=== PATIENT | female | born 1995 | race Two or more races ===

== ENCOUNTER 2017-07-30 16:41 | Emergency (ER) | payer OTHER ==
--- NOTE | 2017-07-30 17:44 | ER Document Report ---
ED Medical Screen (RME) - General Chief Complaint: Vaginal Bleeding Stated Complaint: FEVER, VAGINAL BLEEDING Time Seen by Provider: 07/30/17 17:42 Mode of Arrival: Ambulatory Information source: Patient TRAVEL OUTSIDE OF THE [place] IN LAST 30 DAYS: No - HPI Patient complains to provider of: vaginal bleeding Onset: Other - pt with heavier than normal period and lasting for longer period of time. Also , c/o anorexia - Related Data Allergies/Adverse Reactions: No Known Allergies Allergy (Verified 07/30/17 16:42) Physical Exam - Vital signs Vitals: Temp Pulse Resp BP Pulse Ox 99.3 F 87 16 125/82 100 07/30/17 16:59 07/30/17 16:59 07/30/17 16:59 07/30/17 16:59 07/30/17 16:59 Course - Vital Signs Vital signs: Temp Pulse Resp BP Pulse Ox 99.3 F 87 16 125/82 100 07/30/17 16:59 07/30/17 16:59 07/30/17 16:59 07/30/17 16:59 07/30/17 16:59
[2017-07-30 18:17] LABS: ABSOLUTE EOSINOPHILS # (AUTO) 0.1 10^3/uL (0.0-0.6); ABSOLUTE LYMPHOCYTES (AUTO) 2.5 10^3/uL (0.5-4.7); ABSOLUTE MONOCYTES (AUTO) 0.6 10^3/uL (0.1-1.4); ABSOLUTE NEUT (AUTO) 9.1 10^3/uL (1.7-8.2); BASOPHILS % (AUTO) 0.2 % (0-2); EOSINOPHILS % (AUTO) 0.9 % (0-6); HEMATOCRIT 42.7 % (36.0-47.0); HEMOGLOBIN 14.1 g/dL (12.0-15.5); LYMPHOCYTES % (AUTO) 20.3 % (13-45); MEAN CORPUSCULAR HEMOGLOBIN 28.6 pg (27.0-33.4); MEAN CORPUSCULAR HGB CONC 33.1 g/dL (32.0-36.0); MEAN CORPUSCULAR VOLUME 87 fl (80-97); MONOCYTES % (AUTO) 4.7 % (3-13); PLATELET COUNT 295 10^3/uL (150-450); RED BLOOD COUNT 4.93 10^6/uL (3.72-5.28); RED CELL DISTRIBUTION WIDTH 13.9 % (11.5-14.0); SEGMENTED NEUTROPHILS % (AUTO) 73.9 % (42-78); TOTAL CELLS COUNTED % (AUTO) 100 %; WHITE BLOOD COUNT 12.2 10^3/uL (4.0-10.5)
[2017-07-30 18:35] LABS: APPEARANCE,URINE CLEAR; BILIRUBIN,URINE NEGATIVE (NEGATIVE); COLOR,URINE YELLOW; GLUCOSE, URINE NEGATIVE (NEGATIVE); KETONES,URINE NEGATIVE (NEGATIVE); LEUKOCYTE ESTERASE,URINE TRACE (NEGATIVE); NITRITE,URINE NEGATIVE (NEGATIVE); PROTEIN,URINE NEGATIVE (NEGATIVE); URINE SPECIFIC GRAVITY 1.013; UROBILINOGEN,URINE NEGATIVE mg/dL (<2.0)
[2017-07-30 18:38] LABS: ALANINE AMINOTRANSFERASE 59 U/L (9-52); ALBUMIN 4.9 g/dL (3.5-5.0); ALKALINE PHOSPHATASE 66 U/L (38-126); ANION GAP 13 (5-19); ASPARTATE AMINO TRANSFERASE 47 U/L (14-36); BILIRUBIN,DIRECT 0.4 mg/dL (0.0-0.4); BILIRUBIN,TOTAL 0.5 mg/dL (0.2-1.3); BLOOD UREA NITROGEN 13 mg/dL (7-20); CALCIUM 9.7 mg/dL (8.4-10.2); CARBON DIOXIDE 26 mmol/L (22-30); CHLORIDE 101 mmol/L (98-107); GLUCOSE 88 mg/dL (75-110); POTASSIUM 3.8 mmol/L (3.6-5.0); SODIUM 139.9 mmol/L (137-145); TOTAL PROTEIN 8.4 g/dL (6.3-8.2)
--- NOTE | 2017-07-30 19:00 | ER Document Report ---
HPI - HPI Patient complains to provider of: late menses, tired, some nausea Onset: Other - this month Quality of pain: Achy - generalized Pain Level: 2 Context: 21 yo female c/o late meses, lasting longer than normal, fatique, some nausea. Wants to know what is going on. No recent illness. No chest or abd. pain. No dysuria. No rash. No travel outside [place]. Associated Symptoms: None Exacerbated by: Denies Relieved by: Denies Similar symptoms previously: No Recently seen / treated by doctor: No - ROS ROS below otherwise negative: Yes Systems Reviewed and Negative: Yes All other systems reviewed and negative - DERM Skin Color: Normal, Aten Past Medical History - General Information source: Patient - Social History Smoking Status: Current Every Day Smoker Chew tobacco use (# tins/day): No Frequency of alcohol use: None Drug Abuse: None Lives with: Friend Family History: Reviewed & Not Pertinent Patient has suicidal ideation: No Patient has homicidal ideation: No - Medical History Medical History: Negative Renal/ Medical History: Denies: Hx Peritoneal Dialysis Surgical Hx: Negative Vertical Provider Document - CONSTITUTIONAL Agree With Documented VS: Yes Exam Limitations: No Limitations General Appearance: No Apparent Distress - INFECTION CONTROL TRAVEL OUTSIDE OF THE [place] IN LAST 30 DAYS: No - HEENT HEENT: Normal ENT Exam - NECK Neck: Supple - RESPIRATORY Respiratory: Breath Sounds Normal, No Respiratory Distress O2 Sat by Pulse Oximetry: 100 - CARDIOVASCULAR Cardiovascular: Regular Rate, Regular Rhythm - GI/ABDOMEN Gastrointestinal: Abdomen Soft, Abdomen Non-Tender, No Organomegaly, Normal Bowel Sounds - MUSCULOSKELETAL/EXTREMETIES Musculoskeletal/Extremeties: MAEW - NEURO Level of Consciousness: Awake, Alert - DERM Integumentary: Warm, Dry, No Rash Course - Re-evaluation Re-evalutation: 07/30/17 18:54 Minimally elevated AST and ALT. Negative test. Negative urinalysis. White count 12.7 without a shift. Hemoglobin 14.1 - Vital Signs Vital signs: Temp Pulse Resp BP Pulse Ox 99.3 F 87 16 125/82 100 07/30/17 16:59 07/30/17 16:59 07/30/17 16:59 07/30/17 16:59 07/30/17 16:59 - Laboratory Result Diagrams: 07/30/17 18:00 07/30/17 18:00 Laboratory results interpreted by me: 07/30/17 07/30/17 07/30/17 18:00 18:00 18:00 WBC 12.2 H Absolute Neutrophils 9.1 H AST 47 H ALT 59 H Total Protein 8.4 H Ur Leukocyte Esterase TRACE H Discharge - Discharge Clinical Impression: Liver enzyme elevation, Vaginal bleeding Fatigue Qualifiers: Fatigue type: unspecified Qualified Code(s): R53.83 - Other fatigue Condition: Good Disposition: HOME, SELF-CARE Instructions: Family Physicians / Practices, Liver Function Abnormality ([facility]), Vaginal Bleeding ([facility]) Additional Instructions: Recheck liver enzymes in 2 weeks List of family practice doctors given to you Return to the emergency room if symptoms worsen copy of labs given to you Forms: Return to Work
[2017-07-30 19:17] VITALS: BP 129/90
== END 2017-07-30 19:17 | disposition home or self-care (01) ==
LOC: ER 16:41
DX: R74.8 Abnormal levels of other serum enzymes (principal); N93.9 Abnormal uterine and vaginal bleeding, unspecified; R53.83 Other fatigue; R11.0 Nausea; F17.200 Nicotine dependence, unspecified, uncomplicated
CPT/HCPCS: 36415; 80053; 81001; 81025; 85025; 99284

== ENCOUNTER 2017-08-23 12:58 | Observation (INO) | payer OTHER ==
[~2017-08-23 12:58] MED LIST: DEXAMETHASONE SOD PHOSPHATE INJ 4 MG/1 ML VIAL ONE; GLYCOPYRROLATE INJ 0.4 MG/2 ML VIAL ONE; KETOROLAC TROMETHAMINE 60 MG/2 ML SDV ONE; LIDOCAINE 2% INJ-PF (20 MG/ML) 2 ML AMPUL ONE; METOCLOPRAMIDE HCL INJ/PF 10 MG/2 ML SDV ONE; ONDANSETRON HCL INJ/PF 4 MG/2 ML SDV ONE
--- NOTE | 2017-08-23 14:03 | ER Document Report ---
ED Medical Screen (RME) - General Chief Complaint: Breast Lump Stated Complaint: ABSCESS Time Seen by Provider: 08/23/17 13:52 Notes: Patient presented on July 302017 with malaise and vaginal bleeding. At that time she had a white blood cell count of 12,000 and some minimally elevated liver function tests. She was diagnosed with nonspecific hepatitis. She was instructed to follow-up with her primary care physician. She states that she called multiple physicians but she was unable to get an appointment with anyone. She states over the last several days she has developed a tender enlarging left breast mass. Therefore she can the emergency department today for evaluation. TRAVEL OUTSIDE OF THE [place] IN LAST 30 DAYS: No - Related Data Allergies/Adverse Reactions: No Known Allergies Allergy (Verified 08/23/17 13:01) Past Medical History - Social History Chew tobacco use (# tins/day): No Frequency of alcohol use: None Drug Abuse: None Renal/ Medical History: Denies: Hx Peritoneal Dialysis Physical Exam - Vital signs Vitals: Temp Pulse Resp BP Pulse Ox 98.9 F 69 16 123/65 99 08/23/17 13:15 08/23/17 13:15 08/23/17 13:15 08/23/17 13:15 08/23/17 13:15 Course - Vital Signs Vital signs: Temp Pulse Resp BP Pulse Ox 98.9 F 69 16 123/65 99 08/23/17 13:15 08/23/17 13:15 08/23/17 13:15 08/23/17 13:15 08/23/17 13:15
[2017-08-23 14:49] LABS: ABSOLUTE BASOPHILS # (AUTO) 0.1 10^3/uL (0.0-0.2); ABSOLUTE EOSINOPHILS # (AUTO) 0.1 10^3/uL (0.0-0.6); ABSOLUTE LYMPHOCYTES (AUTO) 2.1 10^3/uL (0.5-4.7); ABSOLUTE MONOCYTES (AUTO) 0.6 10^3/uL (0.1-1.4); ABSOLUTE NEUT (AUTO) 10.2 10^3/uL (1.7-8.2); BASOPHILS % (AUTO) 0.4 % (0-2); EOSINOPHILS % (AUTO) 0.8 % (0-6); HEMATOCRIT 44.6 % (36.0-47.0); HEMOGLOBIN 14.8 g/dL (12.0-15.5); LYMPHOCYTES % (AUTO) 16.1 % (13-45); MEAN CORPUSCULAR HEMOGLOBIN 28.4 pg (27.0-33.4); MEAN CORPUSCULAR HGB CONC 33.1 g/dL (32.0-36.0); MEAN CORPUSCULAR VOLUME 86 fl (80-97); MONOCYTES % (AUTO) 4.7 % (3-13); PLATELET COUNT 272 10^3/uL (150-450); RED CELL DISTRIBUTION WIDTH 13.4 % (11.5-14.0); TOTAL CELLS COUNTED % (AUTO) 100 %
[2017-08-23 15:09] LABS: ALANINE AMINOTRANSFERASE 36 U/L (9-52); ALBUMIN 4.8 g/dL (3.5-5.0); ALKALINE PHOSPHATASE 74 U/L (38-126); ANION GAP 16 (5-19); ASPARTATE AMINO TRANSFERASE 36 U/L (14-36); BILIRUBIN,DIRECT 0.5 mg/dL (0.0-0.4); BILIRUBIN,TOTAL 0.7 mg/dL (0.2-1.3); BLOOD UREA NITROGEN 11 mg/dL (7-20); CARBON DIOXIDE 20 mmol/L (22-30); CHLORIDE 105 mmol/L (98-107); GLUCOSE 71 mg/dL (75-110); POTASSIUM 4.1 mmol/L (3.6-5.0); SODIUM 140.9 mmol/L (137-145); TOTAL PROTEIN 8.2 g/dL (6.3-8.2)
--- NOTE | 2017-08-23 19:04 | RADIOLOGY REPORT (SQ) ---
EXAM DESCRIPTION: U/S BREAST UNILATERAL LIMITED COMPLETED DATE/TIME: 08/23/2017 5:21 pm REASON FOR STUDY: left breast mass COMPARISON: None TECHNIQUE: Static and Realtime grayscale interrogation of focal area(s) of concern in the left breas t(s) acquired. Selected color doppler/spectral images saved to PACS. LIMITATIONS: None. FINDINGS: Masses:There is a complex area in the retroareolar region measuring 3 x 3.5 x 2.1 cm. The re is increased vascularity. Architecture:No alteration of normal morphology. No skin thickening. No edema. Other: None. IMPRESSION: Possible retroareolar abscess. BIRAD: 3 Probably benign finding. Initial short-interval follow-up suggested. RECOMMENDATION: RECOMMENDED FOLLOW-UP: Follow-up as clinically indicated. COMMENT: The [employer] ([employer]) has developed recommendations for screening MRI of the breasts in certain patient populations, to be used in conjunction with mammography. Breast MRI s urveillance may be appropriate for women with more than 20% lifetime risk of developing breast cancer as determined by genetic testing, significant family history of the disease, or history of mantle r adiation for Hodgkins Disease. [employer] Practice Guidelines 2008. TECHNICAL DOCUMENTATION: FINDING NUMBER: (1) ASSESSMENT: (1) JOB ID: [id number] [employer] All Rights Reserved Reading location - IP/workstation name: [email or web address]
[2017-08-23] MEDS ORDERED: NORMAL SALINE 1000 ML 1,000 ML IV ONE (19:49)
[2017-08-23] MEDS ORDERED: NORMAL SALINE 1000 ML 1,000 ML IV PRN (19:49)
--- NOTE | 2017-08-23 19:49 | ER Document Report ---
ED Breast Problem - General Chief Complaint: Breast Lump Stated Complaint: ABSCESS Time Seen by Provider: 08/23/17 13:52 Mode of Arrival: Ambulatory Information source: Patient Notes: 21-year-old female presents to ED for left breast just under the areola. Patient was seen on July 302017 and had a white count of 12,000 now her white count is 13,000. She had slightly elevated liver enzymes liver enzymes are now normal. She states that she has had this lump under her breasts for about a week. She states a week ago was about the size of a quarter now it is much larger more painful. TRAVEL OUTSIDE OF THE [place] IN LAST 30 DAYS: No - HPI Patient complains to provider of: Lump, Swelling, Tenderness. No: Redness Onset: Last week Onset/Duration: Gradual Quality of pain: Dull, Pressure Severity: Moderate Pain Level: 4 Discharge description: None Associated Symptoms: None Similar symptoms previously: Yes Recently seen / treated by doctor: Yes - Related Data Allergies/Adverse Reactions: No Known Allergies Allergy (Verified 08/23/17 13:01) Past Medical History - General Information source: Patient - Social History Smoking Status: Current Every Day Smoker Cigarette use (# per day): Yes - 1-2 cigarettes a day Chew tobacco use (# tins/day): No Smoking Education Provided: Yes - 4 minutes Frequency of alcohol use: None Drug Abuse: None 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 denies: COPD, Thyroid Disfunction Patient has suicidal ideation: No Patient has homicidal ideation: No - Past Medical History Cardiac Medical History: Reports: None Pulmonary Medical History: Reports: None EENT Medical History: Reports: None Neurological Medical History: Reports: None Endocrine Medical History: Reports: None Renal/ Medical History: Reports: None Malignancy Medical History: Reports: None GI Medical History: Reports: None Musculoskeltal Medical History: Reports None Skin Medical History: Reports None Psychiatric Medical History: Reports: None Traumatic Medical History: Reports: None Infectious Medical History: Reports: None Past Surgical History: Reports: Hx Gynecologic Surgery - D & C Review of Systems - Review of Systems Constitutional: No symptoms reported EENT: No symptoms reported Cardiovascular: No symptoms reported Respiratory: No symptoms reported Gastrointestinal: No symptoms reported Genitourinary: No symptoms reported Female Genitourinary: No symptoms reported Musculoskeletal: No symptoms reported Skin: No symptoms reported Hematologic/Lymphatic: Other Neurological/Psychological: No symptoms reported -: Yes All other systems reviewed and negative Physical Exam - Vital signs Vitals: Temp Pulse Resp BP Pulse Ox 98.9 F 69 16 123/65 99 08/23/17 13:15 08/23/17 13:15 08/23/17 13:15 08/23/17 13:15 08/23/17 13:15 Interpretation: Normal - General General appearance: Appears well, Alert - HEENT Head: Normocephalic, Atraumatic Eyes: Normal Pupils: PERRL - Respiratory Respiratory status: No respiratory distress Chest status: Nontender Breath sounds: Normal Chest palpation: Normal - Cardiovascular Rhythm: Regular Heart sounds: Normal auscultation Murmur: No - Abdominal Inspection: Normal Distension: No distension Bowel sounds: Normal Tenderness: Nontender Organomegaly: No organomegaly - Back Back: Normal, Nontender - Extremities General upper extremity: Normal inspection, Nontender, Normal color, Normal ROM , Normal temperature General lower extremity: Normal inspection, Nontender, Normal color, Normal ROM , Normal temperature, Normal weight bearing. No: Lianne's sign - Neurological Neuro grossly intact: Yes Cognition: Normal Orientation: AAOx4 Jonel Coma Scale Eye Opening: Spontaneous Jonel Coma Scale Verbal: Oriented Marion Coma Scale Motor: Obeys Commands Jonel Coma Scale Total: 15 Speech: Normal Motor strength normal: LUE, RUE, LLE, RLE Sensory: Normal - Psychological Associated symptoms: Normal affect, Normal mood - Skin Skin Temperature: Warm Skin Moisture: Dry Skin Color: Normal Skin irregularity: Abscess - Under the right areola Course - Re-evaluation Re-evalutation: 08/23/17 21:58 Dr. Mcgregor was consulted and he took the patient to surgery to I&D the breast abscess to the left breast. - Vital Signs Vital signs: Temp Pulse Resp BP Pulse Ox 98.9 F 69 16 123/65 99 08/23/17 13:15 08/23/17 13:15 08/23/17 13:15 08/23/17 13:15 08/23/17 13:15 - Laboratory Result Diagrams: 08/23/17 14:38 08/23/17 14:38 Laboratory results interpreted by me: 08/23/17 08/23/17 14:38 14:38 WBC 13.0 H Absolute Neutrophils 10.2 H Carbon Dioxide 20 L Creatinine 0.51 L Glucose 71 L Direct Bilirubin 0.5 H - Diagnostic Test Radiology reviewed: Image reviewed, Reports reviewed Discharge - Discharge Clinical Impression: Left breast abscess Disposition: ADMITTED OBSERVATION Admitting Provider: Surgicalist - [facility] Unit Admitted: Surgical Floor
[2017-08-23] MEDS ORDERED: BUPIVACAINE HCL 0.25 % INJ/PF (2.5 MG/1 ML) 30 ML VIAL ONE (20:42)
[2017-08-23] MEDS ORDERED: LIDOCAINE 0.5% INJ-PF (5 MG/ML) 50 ML SDV ONE (20:42)
[2017-08-23] MEDS ORDERED: FENTANYL CITRATE INJ/PF 100 MCG/2 ML AMPUL ONE (20:49)
[2017-08-23] MEDS ORDERED: MIDAZOLAM 2 MG/2 ML INJ ONE (20:49)
[2017-08-23] MEDS ORDERED: KETAMINE HCL INJ 500 MG/10 ML VIAL ONE (20:49)
[2017-08-23] MEDS ORDERED: PROPOFOL INJ 200 MG/20 ML VIAL IV ONE (20:50)
[2017-08-23] MEDS ORDERED: DEXMEDETOMIDINE INJ 80 MCG/20 ML VIAL IV ONE (20:50)
[2017-08-23] MEDS ORDERED: ACETAMINOPHEN 100 ML IV ONE (20:50)
[2017-08-23] MEDS ORDERED: MEPERIDINE HCL/PF INJ 25 MG/1 ML DISP.SYRIN IV PRN (20:58)
[2017-08-23] MEDS ORDERED: FENTANYL CITRATE INJ/PF 100 MCG/2 ML AMPUL IV PRN ×3 (20:58)
[2017-08-23] MEDS ORDERED: PROMETHAZINE HCL INJ 25 MG/1 ML VIAL IV PRN ×2 (20:58)
[2017-08-23] MEDS ORDERED: DIPHENHYDRAMINE HCL 50 MG/ML VIAL IV PRN (20:58)
[2017-08-23] MEDS ORDERED: OXYCODONE-ACETAMINOPHEN 5-325 MG TABLET PO PRN ×3 (20:58→22:31)
--- NOTE | 2017-08-23 21:10 | PDOC H&P ---
History of Present Illness Admission Date/PCP: 08/23/17 20:42 History of Present Illness: JHONY VEGAS is a 21 year old female Brought to the emergency department for the second time in 2 months complaining of weakness, and pain this time in her breasts. She is brought by ground rescue to the emergency department she was evaluated found to have a left breast mass. She had a leukocytosis of 13,000, and a left breast ultrasound which showed a 3 cm abscess. Surgery was consulted and she was offered aspiration versus minimally invasive drainage versus operative drainage. She opted for the latter. She is admitted to the surgicalist for definitive management. Patient does smoke, has no previous history of breast problems. Patient's aunt on mother's side of breast cancer in her 40s. His mother has a history of colon cancer age 32 menstrual period was 07/21/2017. Does not take all prophylaxis. Her beta hCG was reportedly negative. Sent was seen in the emergency department 1 month ago for irregular menses and leukocytosis. No definitive explanation for her symptoms determined. Past Medical History Cardiac Medical History: Reports: None Pulmonary Medical History: Reports: None EENT Medical History: Reports: None Neurological Medical History: Reports: None Endocrine Medical History: Reports: None Renal/ Medical History: Reports: None Malignancy Medical History: Reports: None GI Medical History: Reports: None Musculoskeltal Medical History: Reports: None Skin Medical History: Reports: None Psychiatric Medical History: Reports: None Traumatic Medical History: Reports: None Infectious Medical History: Reports: None Social History Lives with: Family Smoking Status: Current Every Day Smoker Frequency of Alcohol Use: Rare Family History Family History: Arthritis, CAD, CVA, DM, Hyperlipidemia, Hypertension, Malignancy. denies: COPD, Thyroid Disfunction Parental Family History Reviewed: Yes Children Family History Reviewed: Yes Sibling(s) Family History Reviewed.: Yes Medication/Allergy Home Medications: No Home Medications 07/30/17 Allergies/Adverse Reactions: No Known Allergies Allergy (Verified 08/23/17 13:01) Review of Systems Constitutional: PRESENT: as per HPI Ears: ABSENT: as per HPI, hearing changes, other Cardiovascular: ABSENT: chest pain, dyspnea on exertion, edema, orthropnea, palpitations Genitourinary: ABSENT: dysuria, hematuria Musculoskeletal: ABSENT: joint swelling Integumentary: ABSENT: rash, wounds Psychiatric: ABSENT: anxiety, depression, homidical ideation, suicidal ideation Physical Exam Vital Signs: Temp Pulse Resp BP Pulse Ox 98.9 F 69 16 123/65 99 08/23/17 13:15 08/23/17 13:15 08/23/17 13:15 08/23/17 13:15 08/23/17 13:15 General appearance: PRESENT: no acute distress Head exam: PRESENT: atraumatic Eye exam: PRESENT: EOMI Ear exam: PRESENT: normal external ear exam Mouth exam: PRESENT: dry mucosa, moist Neck exam: PRESENT: full ROM Respiratory exam: PRESENT: clear to auscultation lynn Pulses: PRESENT: normal carotid pulses, normal radial pulses Rectal exam: PRESENT: deferred Extremities exam: PRESENT: full ROM Musculoskeletal exam: PRESENT: ambulatory Neurological exam: PRESENT: alert, altered, awake Skin exam: PRESENT: other - Multiple hardware piercings Additional comments: Chest examination; First examined supine upright position. Nipples are everted bilaterally, breasts are symmetric no obvious skin changes are visible By palpation left breast has a firmness periareolar, more so on the lateral side close to the 3 o'clock position. There is very tender to the patient. There is no axillary adenopathy Assessment & Plan - Diagnosis (1) Left breast abscess Is this a current diagnosis for this admission?: Yes Plan: Acute left breast abscess, likely associated with the mammary duct associated inflammatory disease, painful, need of drainage Medications: 1. We will admit patient to the surgical service, keep n.p.o. on IV fluids and intravenous antibiotics 2. Explained the patient options for drainage including percutaneous, minimally invasive at bedside and operative drainage. Is very squeamish wishes to proceed with operative drainage. Perform the procedure later this evening. The mechanics of the operation as well as expectations, including possibility of secondary operation also explained to patient. Believe she understands and agrees to proceed. 3. (2) Smoker Is this a current diagnosis for this admission?: Yes Plan: I told her this stop smoking because it will shorten her life and render her breast infections more likely (3) Family history of colon cancer in father Is this a current diagnosis for this admission?: Yes Plan: Given patient's family history colon cancer in her mother at age 32, patient will need a screening colonoscopy within the next year, 10 years prior to her mother's onset of carcinoma. This was discussed with patient. (4) Family history of breast cancer Is this a current diagnosis for this admission?: Yes - Time Time Spent: 50 to 70 Minutes Critical Time spent with patient: 15-24 minutes Medications reviewed and adjusted accordingly: Yes - Inpatient Certification Based on my medical assessment, after consideration of the patient's comorbidities, presenting symptoms, or acuity I expect that the services needed warrant INPATIENT care.: Yes I certify that my determination is in accordance with my understanding of Medicare's requirements for reasonable and necessary INPATIENT services [42 CFR 412.3e].: Yes Medical Necessity: Need For IV Fluids, Need for Pain Control, Need for IV Antibiotics, Need for Surgery
[2017-08-23] MEDS ORDERED: CEFAZOLIN INJ 1 GM VIAL ONE (21:22)
--- NOTE | 2017-08-23 21:46 | Operative Report ---
Operative Report DATE OF SURGERY: 08/23/17 PREOPERATIVE DIAGNOSIS: 1. Left breast abscess. 2. Smoker POSTOPERATIVE DIAGNOSIS: Same with multiple left breast abscesses OPERATION: Focused ultrasound left breast with ultrasound directed fine-needle aspiration multiple breast abscesses SURGEON: THALIA MCGREGOR ANESTHESIA: LMAC TISSUE REMOVED OR ALTERED: Plus left breast COMPLICATIONS: None ESTIMATED BLOOD LOSS: See below INTRAOPERATIVE FINDINGS: See below PROCEDURE: Patient was evaluated preop holding left breast marked then patient taken to the main operating room where LMAC anesthesia was induced. Left arm was abducted left breast exposed Surgical plan surgical timeout were conducted. Focused ultrasound left breast performed by Dr. Mcgregor. In the lateral quadrant of the left breast there were multiple hypoechoic densities, minimal internal echoes, well-circumscribed with posterior instrument and edge shadowing consistent with abscesses. There Was not one large abscess but actually 3 smaller 1-2 cm abscesses. The service of the breast was prepped with the Betadine, local anesthesia applied with the 25-gauge needle, 1% lidocaine. Using the 18-gauge needle, and variable frequency linear transducer, the abscesses were drained nearly to completion with excellent visualization, and confirmatory decompression of the fluid-filled actions. Approximately 5 cc of pus actively was aspirated from the 3 abscesses. Pus sent for Gram stain culture and sensitivity. I did not feel any further aspiration was indicated. No biopsy was indicated. Patient taught procedure well. Plan: We will keep patient on IV antibiotics overnight and likely send patient home in the morning on p.o. antibiotics
[2017-08-23] MEDS ORDERED: KETOROLAC TROMETHAMINE 10 MG TABLET PO PRN (22:31)
[2017-08-23] MEDS: KETOROLAC TROMETHAMINE INJ/PF 30 MG/1 ML SDV IV PRN (23:47)
[2017-08-24] MEDS: CEFAZOLIN 1 GM/D5W RTU 1 GM/50 ML RTUPB IV SCH ×2 (05:28→13:43)
[2017-08-24] MEDS: KETOROLAC TROMETHAMINE INJ/PF 30 MG/1 ML SDV IV PRN (06:02)
[2017-08-24] MEDS ORDERED: DOCUSATE SODIUM 100 MG CAPSULE PO SCH (10:00)
--- NOTE | 2017-08-24 13:47 | PDOC PROGRESS REPORT ---
Subjective Progress Note for:: 08/24/17 Subjective:: No c/o Reason For Visit: LEFT BREAST ABSCESS Physical Exam Vital Signs: Temp Pulse Resp BP Pulse Ox 98.6 F 70 18 112/62 100 08/24/17 11:18 08/24/17 11:18 08/24/17 11:18 08/24/17 11:18 08/24/17 11:18 Intake & Output 08/23/17 08/24/17 08/25/17 06:59 06:59 06:59 Intake Total 1320 Output Total 1 Balance 1319 General appearance: PRESENT: no acute distress Skin exam: PRESENT: other - Left breast= soft, no erythema, edema, slight tenderness on palpation Assessment & Plan - Diagnosis (1) Family history of breast cancer Is this a current diagnosis for this admission?: Yes (2) Left breast abscess Is this a current diagnosis for this admission?: Yes - Plan Summary Plan Summary: A/ POD #1 after needle aspiration of left breast abscess VSS, AF Culture significant for Spreptococcus group A P/ Home today F/u with Dr. Mcgregor next week Augmentin 875 mg po BID x 5 days Monitor breast manipulation Warm or cold packs to left breast as needed for discomfort/pain Weat sport bra until symptomas are gone Tylenol as needed for pain
[2017-08-24 14:04] VITALS: BP 123/65
--- NOTE | 2017-08-24 15:05 | DISCHARGE SUMMARY E ---
Discharge Summary NAME: JHONY VEGAS : 1995 AGE: 21Y ADMITTED: 08/23/2017 DISCHARGED: 08/24/2017 FINAL DIAGNOSES: 1. Left breast abscess, multiple. 2. Family history of breast and colon cancer. PROCEDURE: On August 23, the patient underwent aspiration of multiple (3) breast abscesses. COMPLICATIONS: None. HOSPITAL COURSE: This is a 21-year-old healthy female who presented to the hospital with complaint of left breast pain and swelling and was found to have multiple breast abscesses, 3 on ultrasound, which were aspirated in surgery. Cultures were obtained. Postop course was unremarkable. She remained on the floor on IV Ancef. Her vital signs remained stable. On the day of discharge, the patient had no complaints. Vital signs were stable. On physical exam, the breast was soft without evidence of acute cellulitis. DISCHARGE ORDERS: The patient was discharged home on August 24. She was given followup appointment with the Surgical Clinic in a week with Dr. Mcgregor. Augmentin 875 mg p.o. b.i.d. for 5 days, Tylenol as needed for pain, instructed to wear a sport bra, no breast manipulations, regular diet, instructions to followup with a genetic service/institution because of her family history of breast and colon cancer. DICTATING PHYSICIAN: PAMELA BRAUN M.D. [id number] PHY#: [id number] ID: [id number] JOB#: [id number] ACCT: [id number] cc:[facility], PAMELA HENDERSON MD, M.D, M.D., JACQUELINE PA > [facility] CENTERIbrahima
== END 2017-08-24 14:51 | disposition home or self-care (01) ==
LOC: ER 12:58 → EH 20:42 → 4N 22:33
PROVIDERS: ATTEND Surgery
PROC: BH41ZZZ Ultrasonography of Left Breast (ICD-10-PCS; 2017-08-23)
PROC: HZ31ZZZ Individual Counseling for Substance Abuse Treatment, Behavioral (ICD-10-PCS; 2017-08-23)
PROC: 0H9U3ZX Drainage of Left Breast, Percutaneous Approach, Diagnostic (ICD-10-PCS; principal; 2017-08-23 21:30)
DX: N61.1 Abscess of the breast and nipple (principal); B95.0 Streptococcus, group A, as the cause of diseases classified elsewhere; F17.210 Nicotine dependence, cigarettes, uncomplicated; Z80.3 Family history of malignant neoplasm of breast; Z80.0 Family history of malignant neoplasm of digestive organs; Z32.02 Encounter for pregnancy test, result negative
CPT/HCPCS: 99406; 99285; 96360; 36415; 87070; 87205; 84703; 85025; 87075; 87077; 80053; 76642; 10022; J2250; J0690 ×2; J1100; J1885 ×3; J3010; J3490 ×3; J2765; J2405; J7030; J2704; J0131; 400